=== PATIENT | female | born 1985 | race African-American/Black ===

== ENCOUNTER 2016-10-14 11:15 | Inpatient (IN) | payer MEDICAID, OTHER ==
[~2016-10-14] VITALS: Ht 170.2 cm; Wt 101.5 kg
[2016-10-14 11:22] VITALS: BP 124/71; RESP 18; Ht 170.2 cm; Wt 101.5 kg
[2016-10-14] MEDS ORDERED: PREN1TAB17 PO (11:24)
--- NOTE | 2016-10-14 12:36 | RADRPT ---
PROCEDURE: OB ultrasound for biophysical profile CLINICAL INDICATION: Biophysical profile. . Polyhydramnios TECHNIQUE: Multiple sonographic images of the pelvis were obtained. Transabdominal view of the gr avid uterus are available for review. The images were reviewed on a PACS workstation. COMPARISON: None FINDINGS: Single intrauterine gestation. Presentation: cephalic. Placenta: anterior; small placental leak noted. breathing movement = 2/2 tone = 2/2 motion = 2/2 MIA = 2/2 MIA = 18.3 cm heart rate: 144 beats per minute IMPRESSION: Single intrauterine gestation. Biophysical profile 04/19 Normal volume of amniotic fluid. RPTAT: AADD .Layo Gurrola MD, MD Date Time Electronically viewed and signed by .Layo Gurrola MD, on 10/14/2016 12:36 .B/
--- NOTE | 2016-10-14 14:34 | RADRPT ---
PROCEDURE: US OB. CLINICAL INDICATION: Placenta vega, pain TECHNIQUE: Transabdominal views of the pelvis are available for review. COMPARISON: 10/14/2016 FINDINGS: There is a single intrauterine gestation in a vertex position. The heart rate is present at 148 bpm. The placenta is anterior. There is no evidence of placental abruption or previa. There is a small placental vega noted. RPTAT: AA IMPRESSION: Small placental vega. No evidence of placental abruption or previa. .Beny Regalado MD, MD Date Time Electronically viewed and signed by .Beny Regalado MD, MD on 10/14/2016 14:34 .S/
--- NOTE | 2016-10-14 20:08 | PN ---
Date/Time of Note Date/Time of Note DATE: 10/14/16 TIME: 20:06 OB Subjective Subjective Subjective Patient had sono for size greater than dates at her doctor's office. Sono showed oligo, nml weight. She was sent to L&D for eval. sono showed nml MIA, w placental vega, but no evidence of abruption. Patient desires to go home. Cat I FHT, no pain, good FM, no complaints will d/c home, but advised to return tomorrow for repeat NST/BPP Patient counselled on risks of abruption, still , neurologic damage to fetus, and that close follow up is necessary to attempt to avoid these possibilities patient agreed to f/u tomorrow. MARY ANNE PARKER MD Oct 14, 2016 20:08
== END 2016-10-14 20:43 | disposition home or self-care (01) | DRG 778 ==
LOC: L-D 11:15 → OBT 11:15 → OBG 13:37
PROVIDERS: ADMIT Obstetrics & Gynecology; ATTEND Obstetrics & Gynecology
DX: O60.03 Preterm labor without delivery, third trimester (principal); O40.3XX0 Polyhydramnios, third trimester, not applicable or unspecified; Z3A.35 35 weeks gestation of pregnancy
CPT/HCPCS: 76815; 76818; G0463

== ENCOUNTER 2016-10-15 17:41 | Outpatient (CLI) | payer OTHER ==
[~2016-10-15] VITALS: Ht 170.2 cm; Wt 102.9 kg
[~2016-10-15 17:41] MED LIST: PREN1TAB17 PO
[2016-10-15 18:05] VITALS: Ht 170.2 cm; Wt 102.9 kg
--- NOTE | 2016-10-15 19:22 | RADRPT ---
PROCEDURE: US OB. CLINICAL INDICATION: Questionable placental leak TECHNIQUE: Pelvic ultrasound performed for biophysical profile. COMPARISON: 10/14/2016 FINDINGS: Single intrauterine gestation present with heart rate at 150 beats per minute. Presentation is ceph alic. Placenta is anterior, grade II. There is no evidence of a placental "leak" but rather a small benign incidental vega of no clinical significance. Biophysical profile score is 8/8 (breathing=2, movement=2, tone =2, fluid volume=2). Amniotic fluid volume is within normal limits, with MIA = 12. 4 cm. RPTAT:HJJR IMPRESSION: 1. Biophysical profile score 8/8. 2. No evidence of a leak from the placenta. Previously identified incidental placenta vega is again noted and of doubtful significance. 3. Normal amniotic fluid index of 12.4 cm. Physician Ant Date Time Electronically viewed and signed by Physician Ant on 10/15/2016 19:22 /
--- NOTE | 2016-10-15 19:55 | PN ---
Date/Time of Note Date/Time of Note DATE: 10/15/16 TIME: 19:53 OB Subjective Subjective Subjective patient came for f/u sono today, as was recommended to her, for polyhydramnios and placental vega sono today confirmed placental vega is a benign incidental finding of no significance. patient has no complaints- no VB, no LOF, no ctx, good FM OB Objective Objective Objective Abdomen- gravid, n/t SVE- deferred FHT- Cat I [place]- no ctx sono- BPP 04/19, nml fluids, see subjective for notes Abdomen: WNL Accelerations: Accelerations Present Decelerations: No Decelerations Contractions on Admission: None OB Assessment/Plan Other Assessment: patient reassured reassuring status Other plan: f/u w OB provider on Tuesday MARY ANNE PARKER MD Oct 15, 2016 19:55
--- NOTE | 2016-10-15 21:09 | TRIAGE ---
OB Triage Datetime Report Generated by CPN: 10/15/2016 21:08 Datetime: 10/15/2016 19:54 Stage of : OB Triage Labor Evaluation Frequency: 1-5.5 Monitor Mode: External Duration (sec)2399: 40-70 Quality: Mild Pattern: Normal: <= 5 Contractions in 10 Minutes Resting Tone Sundown: Relaxed Heart Rate FHR Baseline Rate: 140 Monitor Mode: External US Variability: Moderate 6-25 bpm Accelerations: 15X15 Decelerations: None Category: Category I Datetime: 10/15/2016 19:39 Stage of : OB Triage Datetime: 10/15/2016 18:12 Stage of : OB Triage Datetime: 10/15/2016 18:01 Stage of : OB Triage Assessment Type: Triage Maternal Assessment Level of Consciousness: Fully Conscious DTR's/Clonus: DTRs 2+; No Clonus Headache: Denies Blurred Vision: No Respiratory Effort: Unlabored; Regular Rhythm; Equal Expansion Breath Sounds, Left: Clear and Equal Breath Sounds, Right: Clear and Equal Nausea/Vomiting: Denies RUQ Epigastric Pain: Denies Facial Edema: None Temperature Route: Axillary Fall Risk Assessment History of Falling: (0) No Secondary Diagnosis: (0) No Ambulatory Aid: (0) Bedrest/Nurse Assist IV Therapy: (0) No Gait: (0) Normal/Bedrest/Immobile Mental Status: (0) Oriented to Own Ability Fall Score: 0 Fall Risk Score Definition: No Risk: No action required Labor Evaluation Frequency: 0 Monitor Mode: External Pattern: Normal: <= 5 Contractions in 10 Minutes Resting Tone Sundown: Relaxed Heart Rate FHR Baseline Rate: 165 Monitor Mode: External US Variability: Moderate 6-25 bpm Accelerations: 10X10 Decelerations: None Category: Category I Pain Assessment Pain Scale: 0 Pain Presence: None/Denies Pain Type: N/A Pain Goal: 3 Pain Relief Measures: Comfort Measures Datetime: 10/15/2016 18:00 Time of Arrival: 10/15/2016 17:39 EGA: 37.1 Arrived By: Ambulatory Arrived From: Home Chief Complaint: FOLLOW UP PLACENTAL LEAK, DENIES UC'S, BLEEDING OR LEAKING OF FLUID Movement: Present Contractions: Denies/Absent Rupture of Membranes: Denies Vaginal Bleeding: None Vaginal Discharge: Denies Recent Sexual Intercouse: Denies Abdominal Trauma: Not Applicable Patient Complaints: None Time Provider Notified: 10/15/2016 18:12 Provider Notified: Initial Plan: MONITOR, BPP/PLACENTA Datetime: 10/14/2016 20:43 Stage of : Antepartum Datetime: 10/14/2016 19:59 Labor Evaluation Frequency: NONE Monitor Mode: External Resting Tone Sundown: Relaxed Heart Rate FHR Baseline Rate: 140 Monitor Mode: External US Variability: Moderate 6-25 bpm Accelerations: 15X15 Decelerations: None Category: Category I Datetime: 10/14/2016 19:50 Stage of : Antepartum Datetime: 10/14/2016 19:31 Stage of : Antepartum Assessment Type: Ongoing Assessment Maternal Assessment Level of Consciousness: Fully Conscious DTR's/Clonus: DTRs 2+; No Clonus Headache: Denies Blurred Vision: No Respiratory Effort: Unlabored; Regular Rhythm; Equal Expansion Breath Sounds, Left: Clear and Equal Breath Sounds, Right: Clear and Equal Nausea/Vomiting: Denies RUQ Epigastric Pain: Denies Lower Extremities Edema: None Degree: None Upper Extremities Edema: None Degree: None Facial Edema: None Temperature Route: Oral Fall Risk Assessment History of Falling: (0) No Secondary Diagnosis: (0) No Ambulatory Aid: (0) Bedrest/Nurse Assist IV Therapy: (0) No Gait: (0) Normal/Bedrest/Immobile Mental Status: (0) Oriented to Own Ability Fall Score: 0 Fall Risk Score Definition: No Risk: No action required Pain Presence: None/Denies Pain Type: N/A Amniotic Fluid Amount: None Vaginal Bleeding: None Datetime: 10/14/2016 19:15 Stage of : Antepartum Datetime: 10/14/2016 19:07 Stage of : Antepartum Datetime: 10/14/2016 19:00 Labor Evaluation Frequency: 0 Monitor Mode: External Resting Tone Sundown: Relaxed Heart Rate FHR Baseline Rate: 140 Monitor Mode: External US FHR Baseline Changes: No Baseline Change Variability: Moderate 6-25 bpm Accelerations: 15X15 Decelerations: None Category: Category I Datetime: 10/14/2016 18:00 Stage of : Antepartum Labor Evaluation Frequency: occasional Monitor Mode: External Quality: Mild Resting Tone Sundown: Relaxed Heart Rate FHR Baseline Rate: 140 Monitor Mode: External US FHR Baseline Changes: No Baseline Change Variability: Moderate 6-25 bpm Accelerations: 15X15 Decelerations: None Pain Assessment Pain Scale: 0 Pain Presence: None/Denies Pain Type: N/A Datetime: 10/14/2016 17:00 Stage of : Antepartum Labor Evaluation Frequency: x2 Monitor Mode: External Quality: Mild Resting Tone Sundown: Relaxed Heart Rate FHR Baseline Rate: 140 Monitor Mode: External US FHR Baseline Changes: No Baseline Change Variability: Moderate 6-25 bpm Accelerations: 15X15 Decelerations: None Pain Assessment Pain Scale: 0 Pain Presence: None/Denies Pain Type: N/A Datetime: 10/14/2016 16:16 Stage of : OB Triage Datetime: 10/14/2016 16:00 Stage of : Antepartum Labor Evaluation Frequency: x2 Monitor Mode: External Quality: Mild Resting Tone Sundown: Relaxed Heart Rate FHR Baseline Rate: 140 Monitor Mode: External US FHR Baseline Changes: No Baseline Change Variability: Moderate 6-25 bpm Accelerations: 15X15 Decelerations: None Pain Assessment Pain Scale: 0 Pain Presence: None/Denies Pain Type: N/A Datetime: 10/14/2016 15:06 Assessment Type: Admission Assessment Vaginal Bleeding: None Maternal Assessment Level of Consciousness: Fully Conscious DTR's/Clonus: DTRs 2+; No Clonus Headache: Denies Blurred Vision: No Respiratory Effort: Unlabored; Regular Rhythm; Equal Expansion Breath Sounds, Left: Clear and Equal Breath Sounds, Right: Clear and Equal Nausea/Vomiting: Denies RUQ Epigastric Pain: Denies Facial Edema: None Fall Risk Assessment History of Falling: (0) No Secondary Diagnosis: (0) No Ambulatory Aid: (0) Bedrest/Nurse Assist IV Therapy: (0) No Gait: (0) Normal/Bedrest/Immobile Mental Status: (0) Oriented to Own Ability Fall Score: 0 Fall Risk Score Definition: No Risk: No action required Labor Evaluation Frequency: occasional Duration (sec)2399: 60 Heart Rate FHR Baseline Rate: 140 Variability: Moderate 6-25 bpm Accelerations: 15X15 Decelerations: None Category: Category I Pain Assessment Pain Scale: 0 Pain Presence: None/Denies Pain Type: N/A Datetime: 10/14/2016 15:00 Stage of : Antepartum Labor Evaluation Frequency: x2 Monitor Mode: External Quality: Mild Resting Tone Sundown: Relaxed Heart Rate FHR Baseline Rate: 140 Monitor Mode: External US FHR Baseline Changes: No Baseline Change Variability: Moderate 6-25 bpm Accelerations: 15X15 Decelerations: None Pain Assessment Pain Scale: 0 Pain Presence: None/Denies Pain Type: N/A Datetime: 10/14/2016 14:00 Monitor Mode: External Monitor Mode: External US Pain Assessment Pain Scale: 0 Pain Presence: None/Denies Pain Type: N/A Datetime: 10/14/2016 12:05 Labor Evaluation Frequency: 1-10 Monitor Mode: External Duration (sec)2399: 100 Pattern: Normal: <= 5 Contractions in 10 Minutes Resting Tone Sundown: Relaxed Heart Rate FHR Baseline Rate: 135 Monitor Mode: External US Variability: Moderate 6-25 bpm Accelerations: 15X15 Decelerations: None Category: Category I Pain Presence: None/Denies Vaginal Exam Membrane Status: Intact Datetime: 10/14/2016 11:27 Stage of : OB Triage Assessment Type: Triage Maternal Assessment Level of Consciousness: Fully Conscious DTR's/Clonus: DTRs 2+; No Clonus Headache: Denies Blurred Vision: No Respiratory Effort: Unlabored; Regular Rhythm; Equal Expansion Breath Sounds, Left: Clear and Equal Breath Sounds, Right: Clear and Equal Nausea/Vomiting: Denies RUQ Epigastric Pain: Denies Lower Extremities Edema: None Degree: None Upper Extremities Edema: None Degree: None Facial Edema: None Temperature Route: Oral Fall Risk Assessment History of Falling: (0) No Secondary Diagnosis: (0) No Ambulatory Aid: (0) Bedrest/Nurse Assist IV Therapy: (0) No Gait: (0) Normal/Bedrest/Immobile Mental Status: (0) Oriented to Own Ability Fall Score: 0 Fall Risk Score Definition: No Risk: No action required Monitor Mode: External Heart Rate FHR Baseline Rate: 145 Monitor Mode: External US Variability: Moderate 6-25 bpm Accelerations: 15X15 Decelerations: None Category: Category I Pain Assessment Pain Scale: 0 Pain Presence: None/Denies Datetime: 10/14/2016 11:26 Time of Arrival: 10/14/2016 11:11 EGA: 37.0 Arrived By: Ambulatory Arrived From: Office Chief Complaint: sent Dr clinic with orders for polyhydramnios Movement: Present Rupture of Membranes: Denies Vaginal Discharge: Denies Recent Sexual Intercouse: Denies Patient Complaints: Other Additional Patient Complaints: MIA FISCHER Time Provider Notified: 10/14/2016 11:16 Provider Notified: Dr. Pompa Initial Plan: MIA FISCHER
== END 2016-10-15 20:14 | disposition home or self-care (01) ==
LOC: OBT 17:41 → L-D 17:44 → OBT 20:14
PROVIDERS: ATTEND Obstetrics & Gynecology
DX: O40.3XX0 Polyhydramnios, third trimester, not applicable or unspecified (principal); O60.03 Preterm labor without delivery, third trimester; Z3A.35 35 weeks gestation of pregnancy
CPT/HCPCS: 76818; Z7500; G0463